=== PATIENT | male | born 1990 | race Caucasian/White ===

== ENCOUNTER 2017-10-06 23:44 | Emergency (ER) | payer BC ==
[2017-10-07 01:26] LABS: Absolute Lymphocytes (CBC) 3.6 K/uL (0.7-4.9); Absolute Monocytes 0.8 K/uL (0.1-1.3); Absolute Neutrophil 3.6 K/uL (1.8-8.0); Basophils % 0.4 % (0-1.3); Hematocrit 41.5 % (39.6-49.0); Lymphocytes % 44.7 % (15.3-44.8); MCH 31.1 pg (27.0-35.0); MCV 87.8 fL (80-100); MPV 8.5 fL (7.6-11.3); Monocytes % 9.8 % (3.3-12.3); RBC Red Blood Cell Count 4.72 M/uL (4.33-5.43)
[2017-10-07 01:36] LABS: ALT/SGPT 25 U/L (12-78); AST/SGOT 16 U/L (15-37); Albumin 4.1 g/dL (3.4-5.0); Alkaline Phosphatase 62 U/L (45-117); BUN Blood Urea Nitrogen 14 mg/dL (7-18); Bicarbonate 29 mmol/L (21-32); Bilirubin Direct 0.2 mg/dL (0-0.2); Glucose Level 90 mg/dL (74-106); Lipase 102 U/L (73-393); Potassium 3.8 mmol/L (3.5-5.1); Protein, Total 6.8 g/dL (6.4-8.2); Sodium Level 142 mmol/L (136-145)
--- NOTE | 2017-10-07 04:19 | EDPHYS ---
Physician Documentation [facility] Name: Nadeem Nolasco Age: 27 yrs Sex: Male : 1990 Arrival Date: 10/06/2017 Time: 23:45 Bed 7 Private MD: Tex Parikh ED Physician Ben Gonzalez HPI: 10/07 01:37 This 27 yrs old Male presents to ER via Wheelchair with complaints of pm1 Epigastric Pain, Dizziness. 01:37 The patient presents with abdominal pain in the epigastric area. Onset: The pm1 symptoms/episode began/occurred 1 month(s) ago. The symptoms do not radiate. Associated signs and symptoms: Pertinent positives: chest pain, Pertinent negatives: nausea, vomiting, and diarrhea, fever, shortness of breath. The symptoms are described as achy, burning. Modifying factors: The symptoms are alleviated by nothing, the symptoms are aggravated by food. Severity of pain: in the emergency department the pain is actually worse is a 5 / 10. The patient has experienced similar episodes in the past, multiple times, and the symptoms today are exactly the same, Patient seen by Dr. Yeboah/Neela. Had endoscopy/colonscopy and dx with gastritis. Patient placed on PPI. Patient complaining of continued chest pain and epigastric pain despite treatment. Patient also complaining of dizziness. Was seen by his PCP and referred to neurology for further evalution. Patient has had 4 ER visits for chest pain in the past one month. Discharged to home with ER visit. Historical: - Allergies: 00:06 No Known Allergies; tl2 - Home Meds: 00:06 Dexilant oral oral [Active]; tl2 - PMHx: 00:06 None; tl2 - PSHx: 00:06 None; tl2 - Immunization history:: Adult Immunizations up to date. - Social history:: Smoking status: Patient/guardian denies using tobacco. - Ebola Screening: : No symptoms or risks identified at this time. ROS: 01:37 Constitutional: Negative for fever, chills, and weight loss, Eyes: Negative for injury, pm1 pain, redness, and discharge, ENT: Negative for injury, pain, and discharge, Neck: Negative for injury, pain, and swelling. 01:37 Respiratory: Negative for shortness of breath, cough, wheezing, and pleuritic chest pain. 01:37 Back: Negative for injury and pain, : Negative for injury, bleeding, discharge, and swelling, MS/Extremity: Negative for injury and deformity, Skin: Negative for injury, rash, and discoloration, Neuro: Negative for headache, weakness, numbness, tingling, and seizure. 01:37 Cardiovascular: Positive for chest pain, Negative for edema, orthopnea, palpitations. 01:37 Abdomen/GI: Positive for abdominal pain, of the epigastric area, Negative for nausea, vomiting, and diarrhea. Exam: 01:37 Constitutional: This is a well developed, well nourished patient who is awake, alert, pm1 and in no acute distress. Head/Face: Normocephalic, atraumatic. Eyes: Pupils equal round and reactive to light, extra-ocular motions intact. Lids and lashes normal. Conjunctiva and sclera are non-icteric and not injected. Cornea within normal limits. Periorbital areas with no swelling, redness, or edema. ENT: Nares patent. No nasal discharge, no septal abnormalities noted. Tympanic membranes are normal and external auditory canals are clear. Oropharynx with no redness, swelling, or masses, exudates, or evidence of obstruction, uvula midline. Mucous membranes moist. Neck: Trachea midline, no thyromegaly or masses palpated, and no cervical lymphadenopathy. Supple, full range of motion without nuchal rigidity, or vertebral point tenderness. No Meningismus. Chest/axilla: Normal chest wall appearance and motion. Nontender with no deformity. No lesions are appreciated. Cardiovascular: Regular rate and rhythm with a normal S1 and S2. No gallops, murmurs, or rubs. Normal PMI, no JVD. No pulse deficits. Respiratory: Lungs have equal breath sounds bilaterally, clear to auscultation and percussion. No rales, rhonchi or wheezes noted. No increased work of breathing, no retractions or nasal flaring. 01:37 Back: No spinal tenderness. No costovertebral tenderness. Full range of motion. Skin: Warm, dry with normal turgor. Normal color with no rashes, no lesions, and no evidence of cellulitis. MS/ Extremity: Pulses equal, no cyanosis. Neurovascular intact. Full, normal range of motion. 01:37 Abdomen/GI: Inspection: abdomen appears normal, Bowel sounds: normal, Palpation: soft, mild abdominal tenderness, in the epigastric area, mass, is not appreciated, rebound tenderness, is not appreciated. 01:37 Neuro: Orientation: is normal, Mentation: is normal, Cranial nerves: CN II- XII are normal as tested, Cerebellar function: normal finger to nose testing, Motor: moves all fours, strength is normal, strength is 5/5 in all extremities, Sensation: is normal, no obvious gross deficits. Vital Signs: 00:06 BP 121 / 72; Pulse 71; Resp 18; Temp 99(O); Pulse Ox 99% on R/A; Weight 89.81 kg; tl2 Height 6 ft. 0 in. (182.88 cm); Pain 6/10; 01:02 BP 129 / 81; Pulse 60; Resp 15; Pulse Ox 99% on R/A; ak1 02:28 BP 120 / 77; Pulse 59; Resp 18; Pulse Ox 100% on R/A; Pain 4/10; ak1 03:15 BP 119 / 85; Pulse 56; Resp 18; Pulse Ox 97% ; ea 04:19 BP 116 / 82; Pulse 57; Resp 18; Temp 98.6; Pulse Ox 100% on R/A; Pain 4/10; ak1 00:06 Body Mass Index 26.85 (89.81 kg, 182.88 cm) tl2 MDM: 10/06 23:53 Patient medically screened. pm1 10/07 01:43 Data reviewed: vital signs. Data interpreted: Pulse oximetry: on room air is 99 %. pm1 Interpretation: normal. 10/07 00:05 Order name: Urine Dipstick--Ancillary (enter results) oe 10/07 00:36 Order name: Basic Metabolic Panel; Complete Time: 01:49 pm10/07 00:36 Order name: CBC with Diff; Complete Time: 01:30 pm10/07 00:36 Order name: Creatinine for Radiology; Complete Time: :49 pm10/07 00:36 Order name: Hepatic Function; Complete Time: :49 pm10/07 00:36 Order name: Lipase; Complete Time: 01:49 pm10/07 00:36 Order name: IV Saline Lock; Complete Time: 01:06 pm10/07 00:36 Order name: Labs collected and sent; Complete Time: 01:06 pm1 10/07 00:36 Order name: Troponin (emerg Dept Use Only); Complete Time: 01:49 pm1 10/07 00:36 Order name: EKG; Complete Time: 00:36 pm1 10/07 02:30 Order name: Head Brain Wo Cont EDMS 10/07 02:32 Order name: Abdomen EDMS 10/07 00:36 Order name: Urine Dipstick-Ancillary (obtain specimen); Complete Time: 01:06 pm1 10/07 00:36 Order name: EKG - Nurse/Tech; Complete Time: 01:06 pm1 Administered Medications: No medications were administered Disposition: 04:17 Co-signature as Attending Physician, Ben Gonzalez MD. pkl Disposition: 10/07/17 04:18 Discharged to Home. Impression: Dizziness. Chest pain. Abdominal pain. - Condition is Stable. - Prescriptions for Antivert 25 mg Oral Tablet - take 1 tablet by ORAL route every 8 hours As needed; 20 tablet. - Medication Reconciliation Form, Thank You Letter, Antibiotic Education, Prescription Opioid Use form. - Follow up: Private Physician; When: 2 - 3 days; Reason: Re-evaluation by your physician. - Problem is new. - Symptoms have improved. Signatures: Dispatcher [employer] EDLA Ben Gonzalez MD MD pkl Debbie Garcia RN RN ak1 Bryan Mahoney, MARGUERITE BOOK AGENT pm1 Jenny Oshea RN RN tl2 Corrections: (The following items were deleted from the chart) 02:25 00:36 Abdomen Pelvis W Con+CT.RAD.BRZ ordered. EDLA EDLA 02:25 01:31 Head Brain Wo Cont+CT.RAD.BRZ ordered. EDLA EDLA 04:22 04:18 10/07/2017 04:18 Discharged to Home. Impression: Dizziness. Chest pain. Abdominal ak1 pain. Condition is Stable. Forms are Medication Reconciliation Form, Thank You Letter, Antibiotic Education, Prescription Opioid Use. Follow up: Private Physician; When: 2 - 3 days; Reason: Re-evaluation by your physician. Problem is new. Symptoms have improved. pkl
--- NOTE | 2017-10-07 04:19 | ER ---
Nurse's Notes [facility] Name: Nadeem Nolasco Age: 27 yrs Sex: Male : 1990 Arrival Date: 10/06/2017 Time: 23:45 Bed 7 Private MD: Tex Parikh Diagnosis: Dizziness. Chest pain. Abdominal pain Presentation: 10/07 00:03 Presenting complaint: Patient states: I've been having pains here (epigastric) for tl2 about a month and I've had multiple EKG and blood tests but they're all negative, but I got diagnosed with gastritis and esophagitis and put on dexilant. My pain seems to get worse after I eat, I don't really have an appetite and have lost 20 pounds in a month. Denies vomiting. Transition of care: patient was not received from another setting of care. Onset of symptoms was September 16, 2017. Risk Assessment: Do you want to hurt yourself or someone else? Patient reports no desire to harm self or others. Initial Sepsis Screen: Does the patient meet any 2 criteria? No. Patient's initial sepsis screen is negative. Does the patient have a suspected source of infection? No. Patient's initial sepsis screen is negative. Care prior to arrival: None. 00:03 Method Of Arrival: Wheelchair tl2 00:03 Acuity: LOU 3 tl2 Triage Assessment: 00:06 General: Appears in no apparent distress. comfortable, Behavior is calm, cooperative, tl2 appropriate for age. Pain: Complains of pain in epigastric area Pain radiates to right upper quadrant Pain currently is 6 out of 10 on a pain scale. Historical: - Allergies: 00:06 No Known Allergies; tl2 - Home Meds: 00:06 Dexilant oral oral [Active]; tl2 - PMHx: 00:06 None; tl2 - PSHx: 00:06 None; tl2 - Immunization history:: Adult Immunizations up to date. - Social history:: Smoking status: Patient/guardian denies using tobacco. - Ebola Screening: : No symptoms or risks identified at this time. Screenin:08 Abuse screen: Denies threats or abuse. Nutritional screening: No deficits noted. tl2 Tuberculosis screening: No symptoms or risk factors identified. Fall Risk None identified. Assessment: 01:01 Reassessment: Patient appears in no apparent distress at this time. Patient and/or ak1 family updated on plan of care and expected duration. Pain level reassessed. Patient is alert, oriented x 3, equal unlabored respirations, skin warm/dry/pink. Pain: Pain began months ago. 01:02 General: Appears in no apparent distress. Behavior is calm, cooperative. Pain: ak1 Complains of pain in right upper quadrant and abdomen and epigastric area. Pain: Pain does not radiate. Neuro: No deficits noted. 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 Respiratory: No deficits noted. GI: Patient currently denies vomiting. : No signs and/or symptoms were reported regarding the genitourinary system. EENT: No signs and/or symptoms were reported regarding the EENT system. Derm: No signs and/or symptoms reported regarding the dermatologic system. Musculoskeletal: No signs and/or symptoms reported regarding the musculoskeletal system. 02:27 Reassessment: Patient appears in no apparent distress at this time. No changes from ak1 previously documented assessment. 03:31 Reassessment: No changes from previously documented assessment. Patient and/or family ea updated on plan of care and expected duration. Pain level reassessed. Awaiting on CT results. Vital Signs: 00:06 BP 121 / 72; Pulse 71; Resp 18; Temp 99(O); Pulse Ox 99% on R/A; Weight 89.81 kg; tl2 Height 6 ft. 0 in. (182.88 cm); Pain 6/10; 01:02 BP 129 / 81; Pulse 60; Resp 15; Pulse Ox 99% on R/A; ak1 02:28 BP 120 / 77; Pulse 59; Resp 18; Pulse Ox 100% on R/A; Pain 4/10; ak1 03:15 BP 119 / 85; Pulse 56; Resp 18; Pulse Ox 97% ; ea 04:19 BP 116 / 82; Pulse 57; Resp 18; Temp 98.6; Pulse Ox 100% on R/A; Pain 4/10; ak1 00:06 Body Mass Index 26.85 (89.81 kg, 182.88 cm) tl2 ED Course: 10/06 23:45 Patient arrived in ED. es 23:45 Tex Parikh MD is Private Physician. es 23:53 Bryan Mahoney NP is PHCP. pm1 23:53 Ben Gonzalez MD is Attending Physician. pm1 10/07 00:03 Urine collected: clean catch specimen, cloudy, Amount Voided: 30mL. oe 00:06 Triage completed. tl2 00:06 Arm band placed on right wrist. tl2 01:00 No provider procedures requiring assistance completed. Patient maintains SpO2 ak1 saturation greater than 95% on room air. 01:01 Patient has correct armband on for positive identification. Bed in low position. Call ak1 light in reach. Side rails up X 1. secured entrance monitor on. Pulse ox on. NIBP on. 01:05 Debbie Garcia, RN is Primary Nurse. ak1 01:13 Inserted saline lock: 20 gauge in right antecubital area, using aseptic technique. oe Blood collected. 03:16 Head Brain Wo Cont In Process Unspecified. EDMS 03:16 Abdomen In Process Unspecified. EDMS 04:19 IV discontinued, intact, bleeding controlled, No redness/swelling at site. Pressure ak1 dressing applied. Administered Medications: No medications were administered Outcome: 04:18 Discharge ordered by . pksocorro 04:19 Condition: stable ak1 04:22 Discharged to home ambulatory, with family. ak1 04:22 Discharge instructions given to patient, family, Instructed on discharge instructions, follow up and referral plans. medication usage, Demonstrated understanding of instructions, follow-up care, medications, Prescriptions given X 1. 04:22 Patient left the ED. ak1 Signatures: Dispatcher [employer] EDDE Ben Gonzalez MD MD pkl Salyer, Edna es Krenek, Amber, RN RN ak1 Bryan Mahoney, VINEYARD SUPERVISOR VINEYARD SUPERVISOR pm1 Jenny Oshea RN RN tl2 Esteban Mccollum Elena, RN RN ea
[2017-10-07 04:54] LABS: Urine Blood NEGATIVE (NEG); Urine Glucose NEGATIVE (NEG); Urine Protein NEGATIVE (NEG)
--- NOTE | 2017-10-07 08:53 | RAD REPORT ---
EXAM DESCRIPTION: CT - Abdomen Pelvis W Contrast - 10/07/2017 8:42 am CLINICAL HISTORY: Abdominal pain A preliminary written report was provided at the time of the study, and the report was reviewed prio r to final dictation. COMPARISON: None. TECHNIQUE: Biphasic, helical CT imaging of the abdomen and pelvis was performed following 100 ml non -ionic IV contrast. Oral contrast was given. All CT scans are performed using dose optimization technique as appropriate and may include automated exposure control or mA/KV adjustment according to patient size. FINDINGS: No suspicious findings in the lung bases. The liver, spleen, and pancreas show no suspicious findings. Gallbladder and biliary tree are also wi thout suspicious finding. Symmetric renal function is seen with no hydronephrosis or suspicious renal mass. No dilated bowel loops or bowel wall thickening. Appendix is normal. No free air, free fluid or infla mmatory stranding. No mass or bulky lymphadenopathy. A few small subcentimeter mesenteric lymph node s seen in the right lower quadrant. Patient has a very small incidental umbilical hernia. The urinary bladder is without significant finding. No adrenal abnormality. No prostate gland or seminal vesicle abnormality. No suspicious bony findings. IMPRESSION: Contrast enhanced CT abdomen and pelvis showing no significant or suspicious finding.
--- NOTE | 2017-10-07 08:54 | RAD REPORT ---
EXAM DESCRIPTION: CT - Head Brain Wo Cont - 10/07/2017 8:48 am CLINICAL HISTORY: Headache, dizziness A preliminary written report was provided at the time of the study, and the report was reviewed prio r to final dictation. COMPARISON: None. TECHNIQUE: Axial 5 mm thick images of the head were obtained without IV contrast. All CT scans are performed using dose optimization technique as appropriate and may include automated exposure control or mA/KV adjustment according to patient size. FINDINGS: No intracranial hemorrhage, mass, edema or shift of mid-line structures. No acute infarcti on changes seen. Increased CSF density is seen along the inner table right-side posterior cranial fos sa. This is unrelated to the transverse sinus. This is believed to be a normal developmental variant or possibly encephalomalacia from remote traumatic event. Acute clinical significance is not suspecte d. Ventricles are normal. Mastoid air cells and visualized portions of the paranasal sinuses are clear. No acute bony findings. IMPRESSION: Negative non-contrast CT head examination for acute or significant finding.
--- NOTE | 2017-10-08 07:43 | EKG ---
Test Date: 2017-10-07 Test Time: 00:46:16 Hatchery Helper: JOHN MEASUREMENT RESULTS: Intervals: Rate: 54 DE: 138 QRSD: 92 QT: 426 QTc: 403 [place]: P: 51 DE: 138 QRS: 55 T: 37 INTERPRETIVE STATEMENTS: Sinus bradycardia Otherwise normal ECG Compared to ECG 02/09/2009 20:01:13 Sinus rhythm no longer present Sinus arrhythmia no longer present Electronically Signed On 10-08-17 07:43:03 CDT by Khalif Mcbride
== END 2017-10-07 04:22 | disposition home or self-care (01) ==
LOC: ER 23:44
DX: R07.9 Chest pain, unspecified (principal); R10.13 Epigastric pain
CPT/HCPCS: 36415; 70450; 74177; 80048; 80076; 81003; 83690; 84484; 85025; 93005; 99285; Q9967

== ENCOUNTER 2018-07-19 23:36 | Emergency (ER) | payer BC, SELFPAY ==
--- OUTSIDE RECORDS SUMMARY | 2018-07-19 23:38 | XMS REPORT | Clinical Summary ---
:1990 Author Organization [facility] Address [address] [place] [address] Care Team Providers Name Role Phone Tex Parikh MD Primary Care Provider Allergies No Known Allergies Medications Medication Sig Dispensed Refills Start Date End Date Status dexlansoprazole Take 60 mg by 0 Active (DEXILANT) 60 mg capsule mouth daily. Active Problems Not on file Encounters Date Type Specialty Care Team Description 10/05/2017 Emergency Emergency Medicine [place], Chest pain, unspecified Birdie Parks MD type (Primary Dx) after 07/18/2017 Social History Tobacco Use Types Packs/Day Years Used Date Never Smoker Smokeless Tobacco: Current User Alcohol Use Drinks/Week oz/Week Comments No Sex Assigned at Date Recorded Not on file Job Start Date Occupation Industry Not on file Not on file Not on file Travel History Travel Start Travel End No recent travel history available. Last Filed Vital Signs Vital Sign Reading Time Taken Blood Pressure 136/79 10/05/2017 6:52 PM CDT Pulse 64 10/05/2017 6:52 PM CDT Temperature 37.7 C (99.8 F) 10/05/2017 2:57 PM CDT Respiratory Rate 16 10/05/2017 6:52 PM CDT Oxygen Saturation 97% 10/05/2017 6:52 PM CDT Inhaled Oxygen Concentration - - Weight 89.8 kg (198 lb) 10/05/2017 2:55 PM CDT Height 182.9 cm (6') 10/05/2017 2:55 PM CDT Body Mass Index 26.85 10/05/2017 2:55 PM CDT Plan of Treatment Health Maintenance Due Date Last Done Comments INFLUENZA VACCINE 10/17/2018 Procedures Procedure Name Priority Date/Time Associated Comments Diagnosis D-DIMER STAT 10/05/2017 4:40 Results for this PM CDT procedure are in the results section. ZZESTIMATED GFR STAT 10/05/2017 4:40 Results for this PM CDT procedure are in the results section. B NATRIURETIC PEPTIDE STAT 10/05/2017 4:40 Results for this PM CDT procedure are in the results section. TROPONIN STAT 10/05/2017 4:40 Results for this PM CDT procedure are in the results section. COMPREHENSIVE METABOLIC STAT 10/05/2017 4:40 Results for this PANEL PM CDT procedure are in the results section. HC COMPLETE BLD COUNT STAT 10/05/2017 4:40 Results for this W/AUTO DIFF PM CDT procedure are in the results section. XR CHEST 2 VW STAT 10/05/2017 4:39 Results for this PM CDT procedure are in the results section. ECG 12-LEAD STAT 10/05/2017 4:11 Results for this PM CDT procedure are in the results section. ECG ED PRELIMINARY Routine 10/05/2017 3:58 Results for this INTERPRETATION PM CDT procedure are in the results section. after 07/18/2017 Results Estimated GFR (10/05/2017 4:40 PM CDT) GFR Non Af Amer >90 mL/min/1.73 m2 [facility] AND GENOMIC MEDICINE GFR Af Amer >90 mL/min/1.73 m2 [facility] OF Comment: PATHOLOGY AND GENOMIC Chronic kidney disease: <60 mL/min/1.73m2 MEDICINE Kidney failure: <15 mL/min/1.73m2 The estimated GFR is calculated from the IDMS-traceable Modification of Diet in Renal Disease Equation. The accuracy of the calculation is poor when the creatinine is normal. Calculated values >90 mL/min/1.73m2 are not reported. This equation has not been validated in children (<18 years), women, the elderly (>70 years), or ethnic groups other than Caucasians and Americans. Specimen Plasma specimen Performing Organization Address City/State/Zipcode Phone Number [facility]Y AND [address] [place] [address] [employer] MEDICINE Troponin (10/05/2017 4:40 PM CDT) Troponin <0.30 0.00 - 0.30 ng/mL [facility] PATHOLOGY Comment: AND GENOMIC MEDICINE 0.11 - 1.49 ng/mlMay indicate increased risk of acute coronary syndrome. >=1.5 ng/mlConsistent with acute myocardial infarction. The diagnostic value of a single normal or non-diagnostic result is questionable.Serial samples at 2-6 hour intervals are required to rule out acute myocardial injury. Specimen Plasma specimen Performing Organization Address City/State/Zipcode Phone Number [facility]OLOGY AND [address] [place] [address] [facility] D-dimer (10/05/2017 4:40 PM CDT) D-dimer <0.27 0.00 - 0.40 ug/mL FEU [facility] OF Comment: PATHOLOGY AND GENOMIC Units are ug/ml Fibrinogen Equivalent Unit. MEDICINE When combined with low clinical probability, D-dimer results of less than 0.5 ug/ml FEU have a good negativepredictive value in excluding PE or DVT. For D-dimer results greater than 0.5ug/ml FEU further testing is indicated if PE or DVT is suspectedclinically. Elevated D-dimer results have been reported in DVT, PE, and DIC cases and may indicate the presence of a clot. D-dimer results may be elevated due to old age, , inflammatory diseases, trauma, post-operative states, sepsis, and malignancies. Specimen Blood Performing Organization Address City/State/Zipcode Phone Number [facility]OLOGY AND [facility] [place] [address] [facility] CBC with platelet and differential (10/05/2017 4:40 PM CDT) WBC 10.1 4.2 - 11.0 k/uL [facility]OLOGY AND GENOMIC MEDICINE RBC 4.81 4.04 - 5.86 m/uL [facility] OF [facility]OLOGY AND GENOMIC MEDICINE HGB 14.5 13.0 - 17.3 g/dL [facility]OLOGY AND GENOMIC MEDICINE HCT 42.3 34.0 - 45.0 % [facility] OF [facility]OLOGY AND GENOMIC MEDICINE MCV 87.9 80.0 - 98.0 fL [facility]OLOGY AND GENOMIC MEDICINE MCH 30.1 27.0 - 34.0 pg [facility] OF PATHOLOGY AND GENOMIC MEDICINE MCHC 34.3 31.5 - 36.5 g/dL [facility] OF [facility]OLOGY AND GENOMIC MEDICINE RDW - SD 37.3 37.0 - 51.0 fL [facility] OF [facility]OLOGY AND GENOMIC MEDICINE MPV 9.8 7.4 - 10.4 fL [facility] OF [facility]OLOGY AND GENOMIC MEDICINE Platelet count 296 150 - 400 k/uL [facility] OF PATHOLOGY AND GENOMIC MEDICINE Nucleated RBC 0.00 /100 WBC [facility] OF PATHOLOGY AND GENOMIC MEDICINE Neutrophils 68.9 (H) 36.0 - 66.0 % [facility] OF [facility]OLOGY AND GENOMIC MEDICINE Lymphocytes 23.2 (L) 24.0 - 44.0 % [facility]OLOGY AND GENOMIC MEDICINE Monocytes 7.5 (H) 0.0 - 6.0 % [facility] OF [facility]OLOGY AND GENOMIC MEDICINE Eosinophils 0.1 0.0 - 6.0 % [facility] OF PATHOLOGY AND GENOMIC MEDICINE Basophils 0.1 0.0 - 1.2 % [facility] OF [facility]OLOGY AND GENOMIC MEDICINE Immature granulocytes 0.2 0.0 - 1.0 % [facility] OF [facility]OLOGY AND GENOMIC MEDICINE Specimen Blood Performing Organization Address City/[facility]/Zipcode Phone Number [facility]OLOGY AND [address] [place] [address] B natriuretic peptide (10/05/2017 4:40 PM CDT) BNP 5 0 - 100 pg/mL [facility] OF [facility]OLOGY AND GENOMIC MEDICINE Specimen Blood Performing Organization Address City/[facility]/Zipcode Phone Number [facility] PATHOLOGY AND [address] [place] [address] Comprehensive metabolic panel (10/05/2017 4:40 PM CDT) Sodium 139 135 - 150 mEq/L [facility] OF [facility]OLOGY AND GENOMIC MEDICINE Potassium 4.2 3.5 - 5.0 mEq/L [facility] OF [facility]OLOGY AND GENOMIC MEDICINE Chloride 99 98 - 112 mEq/L [facility] AND GENOMIC MEDICINE CO2 28 24 - 31 mmol/L [facility]OLOGY AND GENOMIC MEDICINE Anion gap 12@ANIO 7 - 15 mEq/L [facility] OF [facility]OLOGY AND GENOMIC MEDICINE BUN 13 7 - 18 mg/dL [facility] OF [facility]OLOGY AND GENOMIC MEDICINE Creatinine 0.90 0.70 - 1.20 mg/dL [facility]OLOGY AND GENOMIC MEDICINE Glucose 102 (H) 65 - 100 mg/dL [facility] OF [facility]OLOGY AND GENOMIC MEDICINE Calcium 9.7 8.3 - 10.2 mg/dL [facility] OF [facility]OLOGY AND GENOMIC MEDICINE Protein 7.1 6.3 - 8.3 g/dL [facility]OLOGY AND GENOMIC MEDICINE Albumin 4.6 3.5 - 5.0 g/dL [facility] OF [facility]OLOGY AND GENOMIC MEDICINE A/G ratio 1.8 0.7 - 3.8 [facility] OF [facility]OLOGY AND GENOMIC MEDICINE Alkaline phosphatase 52 0 - 129 U/L [facility] OF [facility]OLOGY AND GENOMIC MEDICINE AST 25 10 - 50 U/L [facility]OLOGY AND GENOMIC MEDICINE ALT 22 5 - 50 U/L [facility] OF [facility]OLOGY AND GENOMIC MEDICINE Total bilirubin 1.6 (H) 0.2 - 1.2 mg/dL [facility]Y AND GENOMIC MEDICINE Specimen Plasma specimen Performing Organization Address City/[facility]/Zipcode Phone Number [facility]OLOGY AND [facility] [place] [address] GENOMIC MEDICINE XR Chest 2 Vw (10/05/2017 4:39 PM CDT) Narrative Performed At EXAMINATION:XR CHEST 2 VW [facility] CLINICAL HISTORY:Chest wall pain COMPARISON:None. FINDINGS: Two views of the chest demonstrate normal cardiomediastinal silhouette. Pulmonary vasculature is within normal limits. Both lungs are clear. No pleural disease is identified. Regional osseous structures is unremarkable. IMPRESSION: No radiographic evidence of acute cardiopulmonary process or active disease of the chest. [id number] Procedure Note Hm Interface, Radiology Results Incoming - 10/05/2017 4:45 PM CDT EXAMINATION: XR CHEST 2 VW CLINICAL HISTORY: Chest wall pain COMPARISON: None. FINDINGS: Two views of the chest demonstrate normal cardiomediastinal silhouette. Pulmonary vasculature is within normal limits. Both lungs are clear. No pleural disease is identified. Regional osseous structures is unremarkable. IMPRESSION: No radiographic evidence of acute cardiopulmonary process or active disease of the chest. [facility][id number] Performing Organization Address City/State/Zipcode Phone Number [facility] [address] [place] [address] ECG 12 lead (10/05/2017 4:11 PM CDT) Ventricular rate 78 [facility] Atrial rate 78 [facility] NE interval 138 [facility] QRSD interval 100 [facility] QT interval 376 [facility] QTC interval 428 [facility] P axis 1 56 [facility] QRS axis 1 84 [facility] T wave axis 55 [facility] EKG impression Normal sinus rhythm-Normal ECG-No previous [facility] ECGs available- Performing Organization Address City/State/Zipcode Phone Number [facility] [address] [place] [address] ECG ED Preliminary Interpretation - NOT AN ORDER (10/05/2017 3:58 PM CDT) Narrative Performed At Birdie Rodriguez MD 10/06/2017 10:44 PM ECG ED Preliminary Interpretation - Not an Order Performed by: BIRDIE RODRIGUEZ Authorized by: BIRDIE RODRIGUEZ ECG reviewed by ED Physician in the absence of a food taster: yes Interpretation: Interpretation: normal Rate: ECG rate:78 ECG rate assessment: normal Rhythm: Rhythm: sinus rhythm Ectopy: Ectopy: none QRS: QRS axis:Normal QRS intervals:Normal Conduction: Conduction: normal ST segments: ST segments:Normal T waves: T waves: normal after 07/18/2017 Insurance Payer Benefit Plan / Group Subscriber ID Type Phone Address BCBS BCBS CHOICE PPO/[employer] PPO xxxxxxxxxxxx PPO (Home) [address] [place] [phone] Advance Directives Patient has advance care planning documents on file. For more information, please contact:Carlos Lamb[address] [place] [address]
--- NOTE | 2018-07-20 01:16 | EDPHYS ---
Physician Documentation [facility] Name: Nadeem Nolasco Age: 27 yrs Sex: Male : 1990 Arrival Date: 07/19/2018 Time: 23:39 Bed 7 Private MD: ED Physician Raheem López HPI: 07/20 00:57 This 27 yrs old Male presents to ER via Ambulatory with complaints of Hand snw Injury. 00:57 The patient or guardian reports a contusion, decreased range of motion, injury, pain, snw swelling. The complaints affect the medial aspect of right hand. Context: The problem was sustained inside, resulted from using own fist to strike, a solid object. Onset: The symptoms/episode began/occurred suddenly, just prior to arrival. Associated signs and symptoms: The patient has no apparent associated signs or symptoms. Severity of symptoms: At their worst the symptoms were moderate. The patient has not experienced similar symptoms in the past. The patient has not recently seen a physician. Historical: - Allergies: 07/19 23:57 No Known Allergies; ed1 - Home Meds: 23:57 None [Active]; ed1 - PMHx: 23:57 None; ed1 - PSHx: 23:57 None; ed1 - Immunization history:: Adult Immunizations up to date. - Social history:: Smoking status: Patient/guardian denies using tobacco. - Ebola Screening: : Patient negative for fever greater than or equal to 101.5 degrees Fahrenheit, and additional compatible Ebola Virus Disease symptoms Patient denies exposure to infectious person Patient denies travel to an Ebola-affected area in the 21 days before illness onset No symptoms or risks identified at this time. ROS: 07/20 00:54 Constitutional: Negative for fever, chills, and weight loss, Eyes: Negative for injury, snw pain, redness, and discharge, ENT: Negative for injury, pain, and discharge, Neck: Negative for injury, pain, and swelling, Cardiovascular: Negative for chest pain, palpitations, and edema, Respiratory: Negative for shortness of breath, cough, wheezing, and pleuritic chest pain, Abdomen/GI: Negative for abdominal pain, nausea, vomiting, diarrhea, and constipation, Back: Negative for injury and pain, : Negative for injury, bleeding, discharge, and swelling, Skin: Negative for injury, rash, and discoloration, Neuro: Negative for headache, weakness, numbness, tingling, and seizure. MS/extremity: Positive for injury or acute deformity, contusion, deformity, pain, swelling, tenderness, of the medial aspect of right hand. Exam: 00:54 Constitutional: This is a well developed, well nourished patient who is awake, alert, snw and in no acute distress. Head/Face: Normocephalic, atraumatic. Eyes: Pupils equal round and reactive to light, extra-ocular motions intact. Lids and lashes normal. Conjunctiva and sclera are non-icteric and not injected. Cornea within normal limits. Periorbital areas with no swelling, redness, or edema. ENT: Nares patent. No nasal discharge, no septal abnormalities noted. Tympanic membranes are normal and external auditory canals are clear. Oropharynx with no redness, swelling, or masses, exudates, or evidence of obstruction, uvula midline. Mucous membranes moist. Neck: Trachea midline, no thyromegaly or masses palpated, and no cervical lymphadenopathy. Supple, full range of motion without nuchal rigidity, or vertebral point tenderness. No Meningismus. Chest/axilla: Normal chest wall appearance and motion. Nontender with no deformity. No lesions are appreciated. Cardiovascular: Regular rate and rhythm with a normal S1 and S2. No gallops, murmurs, or rubs. Normal PMI, no JVD. No pulse deficits. Respiratory: Lungs have equal breath sounds bilaterally, clear to auscultation and percussion. No rales, rhonchi or wheezes noted. No increased work of breathing, no retractions or nasal flaring. Abdomen/GI: Soft, non-tender, with normal bowel sounds. No distension or tympany. No guarding or rebound. No evidence of tenderness throughout. Back: No spinal tenderness. No costovertebral tenderness. Full range of motion. Skin: Warm, dry with normal turgor. Normal color with no rashes, no lesions, and no evidence of cellulitis. Neuro: Awake and alert, GCS 15, oriented to person, place, time, and situation. Cranial nerves II-XII grossly intact. Motor strength 5/5 in all extremities. Sensory grossly intact. Cerebellar exam normal. Normal gait. Psych: Awake, alert, with orientation to person, place and time. Behavior, mood, and affect are within normal limits. 00:54 Musculoskeletal/extremity: Extremities: grossly normal except: noted in the medial aspect of right hand: decreased ROM, pain, swelling, tenderness, ROM: limited active range of motion due to pain, Circulation is intact in all extremities. Pulses: are normal with no appreciated deficits, Sensation intact. Vital Signs: 07/19 23:57 BP 129 / 81; Pulse 90; Resp 18; Temp 98.0(TE); Pulse Ox 99% on R/A; Weight 89.36 kg; ed1 Height 6 ft. 0 in. (182.88 cm); Pain 6/10; 07/20 01:31 BP 131 / 78; Pulse 86; Resp 17; Temp 98.2; Pulse Ox 100% on R/A; Pain 4/10; tl1 07/19 23:57 Body Mass Index 26.72 (89.36 kg, 182.88 cm) ed1 Procedures: 00:55 Reduction: of the medial aspect of right hand, using manipulation, Immobilized with snw ulnar gutter. Patient tolerated well. declined pain medication pre and post reduction. MDM: 00:02 Patient medically screened. [facility] 01:16 Data reviewed: vital signs, nurses notes. Data interpreted: Pulse oximetry: on room air snw is 99 %. Interpretation: normal. Counseling: I had a detailed discussion with the patient and/or guardian regarding: the historical points, exam findings, and any diagnostic results supporting the discharge/admit diagnosis, radiology results, the need for outpatient follow up, to return to the emergency department if symptoms worsen or persist or if there are any questions or concerns that arise at home. Response to treatment: the patient's symptoms have markedly improved after treatment. Special discussion: Based on the history and exam findings, there is no indication for further emergent testing or inpatient evaluation. I discussed with the patient/guardian the need to see the orthopedic surgeon for further evaluation of the symptoms. 07/20 00:02 Order name: Hand Right 3 View XRAY snw 07/20 00:42 Order name: Ulnar Gutter splint; Complete Time: 01:15 snw 07/20 01:12 Order name: Hand Right 2 View EDMS Administered Medications: No medications were administered Disposition: 07/20/18 01:15 Discharged to Home. Impression: Dislocation of metacarpal (bone), proximal end of right hand. - Condition is Stable. - Discharge Instructions: Cast or Splint Care, Adult, RICE for Routine Care of Injuries, Closed Reduction for Metacarpal Dislocation. - Prescriptions for Motrin IB 200 mg Oral Tablet - take 2 tablet by ORAL route every 6 hours As needed as needed with food; 40 tablet. - Medication Reconciliation Form, Thank You Letter, Antibiotic Education, Prescription Opioid Use form. - Follow up: Robb Robles MD; When: 2 - 3 days; Reason: Recheck today's complaints, Continuance of care, Re-evaluation by your physician. Addendum: 07/22/2018 06:43 Co-signature as Attending Physician, Raheem López MD I agree with the assessment and c salas plan of care. Signatures: Dispatcher [employer] EDMS Raheem López MD MD cha Therrien, Shelly, SLOT SHIFT SUPERVISOR-C SLOT SHIFT SUPERVISOR-Csnw Sandee Carrasco, RN RN ed1 Cristine Wright RN RN tl1 Corrections: (The following items were deleted from the chart) 07/20 01:33 01:15 07/20/2018 01:15 Discharged to Home. Impression: Dislocation of metacarpal tl1 (bone), proximal end of right hand. Condition is Stable. Forms are Medication Reconciliation Form, Thank You Letter, Antibiotic Education, Prescription Opioid Use. Follow up: Dr. Robb Robles; When: 2 - 3 days; Reason: Recheck today's complaints, Continuance of care, Re-evaluation by your physician. snw
--- NOTE | 2018-07-20 01:16 | ER ---
Nurse's Notes [facility] Name: Nadeem Nolasco Age: 27 yrs Sex: Male : 1990 Arrival Date: 07/19/2018 Time: 23:39 Bed 7 Private MD: Diagnosis: Dislocation of metacarpal (bone), proximal end of right hand Presentation: 07/19 23:56 Presenting complaint: Patient states: I punched a wall so I need to x-ray my hand. ed1 Transition of care: patient was not received from another setting of care. Onset of symptoms was July 19, 2018. Risk Assessment: Do you want to hurt yourself or someone else? Patient reports no desire to harm self or others. Initial Sepsis Screen: Does the patient meet any 2 criteria? No. Patient's initial sepsis screen is negative. Does the patient have a suspected source of infection? No. Patient's initial sepsis screen is negative. Care prior to arrival: None. 23:56 Method Of Arrival: Ambulatory ed1 23:56 Acuity: LOU 4 ed1 Triage Assessment: 23:57 General: Appears in no apparent distress. Behavior is calm, cooperative. Pain: ed1 Complains of pain in right hand Pain radiates to right arm Pain currently is 6 out of 10 on a pain scale. Quality of pain is described as aching. Musculoskeletal: Circulation, motion, and sensation intact. Range of motion: intact in all extremities. Historical: - Allergies: 23:57 No Known Allergies; ed1 - Home Meds: 23:57 None [Active]; ed1 - PMHx: 23:57 None; ed1 - PSHx: 23:57 None; ed1 - Immunization history:: Adult Immunizations up to date. - Social history:: Smoking status: Patient/guardian denies using tobacco. - Ebola Screening: : Patient negative for fever greater than or equal to 101.5 degrees Fahrenheit, and additional compatible Ebola Virus Disease symptoms Patient denies exposure to infectious person Patient denies travel to an Ebola-affected area in the 21 days before illness onset No symptoms or risks identified at this time. Screenin/04 00:23 Abuse screen: Denies threats or abuse. Denies injuries from another. Nutritional tl1 screening: No deficits noted. Tuberculosis screening: No symptoms or risk factors identified. Fall Risk None identified. Assessment: 00:24 General: Appears in no apparent distress. Behavior is calm, cooperative, appropriate tl1 for age. Pain: Complains of pain in right hand Quality of pain is described as aching. Neuro: No deficits noted. Level of Consciousness is awake, alert, obeys commands, Oriented to person, place, time, situation. Cardiovascular: Denies chest pain. Respiratory: Airway is patent Trachea midline Respiratory effort is even, unlabored, Breath sounds are clear bilaterally. GI: No signs and/or symptoms were reported involving the gastrointestinal system. : No signs and/or symptoms were reported regarding the genitourinary system. EENT: No signs and/or symptoms were reported regarding the EENT system. Musculoskeletal: Swelling present in right hand Tenderness present in right hand Reports pain in right hand. Injury Description:. 01:31 Reassessment: Patient and/or family updated on plan of care and expected duration. Pain tl1 level reassessed. Patient is alert, oriented x 3, equal unlabored respirations, skin warm/dry/pink. Patient states feeling better. Patient states symptoms have improved. Vital Signs: 07/19 23:57 BP 129 / 81; Pulse 90; Resp 18; Temp 98.0(TE); Pulse Ox 99% on R/A; Weight 89.36 kg; ed1 Height 6 ft. 0 in. (182.88 cm); Pain 6/10; 07/20 01:31 BP 131 / 78; Pulse 86; Resp 17; Temp 98.2; Pulse Ox 100% on R/A; Pain 4/10; tl1 07/19 23:57 Body Mass Index 26.72 (89.36 kg, 182.88 cm) ed1 ED Course: 07/19 23:39 Patient arrived in ED. es 23:56 Triage completed. ed1 23:57 Arm band placed on right wrist. ed1 23:57 Patient has correct armband on for positive identification. Bed in low position. Call tl1 light in reach. Side rails up X 1. 07/20 00:01 [facility]ene [facility]C [facility] snw 00:01 Raheem López MD is Attending Physician. snw 00:14 X-ray completed. Portable x-ray completed in exam room. Patient tolerated procedure az well. 00:15 Hand Right 3 View XRAY In Process Unspecified. EDMS 01:03 Cristine Wright, RN is Primary Nurse. tl1 01:14 Robb Robles MD is Referral Physician. snw 01:20 No provider procedures requiring assistance completed. Patient did not have IV access tl1 during this emergency room visit. Orthoglass splint: Ulnar gutter/Boxer splint applied on right forearm. 02:34 Hand Right 2 View In Process Unspecified. EDMS Administered Medications: No medications were administered Outcome: 01:15 Discharge ordered by . snw 01:32 Discharged to home ambulatory, with family. tl1 01:32 Condition: good 01:32 Discharge instructions given to patient, family, Instructed on discharge instructions, follow up and referral plans. medication usage, SPLINT CARE. ICE AND ELEVATION Demonstrated understanding of instructions, follow-up care, medications, splint care, Prescriptions given X 1. 01:33 Patient left the ED. tl1 Signatures: Dispatcher [employer] EDMS Marylou Keene, MAEGAN-C [employer]-CsnKera Solis Erika RN RN ed1 Cristine Wright, RN RN tl1 Liane Zhong Corrections: (The following items were deleted from the chart) 05/03 23:59 23:57 BP 129 / 81; Pulse 90bpm; Resp 18bpm; Pulse Ox 99% RA; Temp 98.0F Temporal; 89.36 ed1 kg; Height 6 ft. 0 in.; BMI: 26.7; Pain 8/10; ed1
--- NOTE | 2018-07-20 09:24 | RAD REPORT ---
EXAM DESCRIPTION: RAD - Hand Right 3 View - 07/20/2018 12:17 am CLINICAL HISTORY: Right hand pain status post injury FINDINGS: Dislocation involves the base of the fifth metacarpal. Small bony density adjacent to the base may indicate an avulsion fracture from either the navicular or the fifth metacarpal. An old fracture of the fifth metacarpal neck suspected.
--- NOTE | 2018-07-20 09:25 | RAD REPORT ---
EXAM DESCRIPTION: RAD - Hand Right 2 View - 07/20/2018 2:34 am CLINICAL HISTORY: Right hand pain status post injury FINDINGS: The previously described dislocation involving the fifth metacarpal appears reduced
== END 2018-07-20 01:33 | disposition home or self-care (01) ==
LOC: ER 23:36
PROC: 0RSUXZZ Reposition Right Metacarpophalangeal Joint, External Approach (ICD-10-PCS; principal; 2018-07-20)
DX: S63.064A Dislocation of metacarpal (bone), proximal end of right hand, initial encounter (principal); W22.8XXA Striking against or struck by other objects, initial encounter; Y93.9 Activity, unspecified; Y92.89 Other specified places as the place of occurrence of the external cause
CPT/HCPCS: 99283

== ENCOUNTER 2018-11-24 14:09 | Emergency (ER) | payer SELFPAY ==
--- OUTSIDE RECORDS SUMMARY | 2018-11-24 14:12 | XMS REPORT | Clinical Summary ---
:1990 Author Organization [facility] Address [address] [place] [address] Care Team Providers Name Role Phone Tex Parikh MD Primary Care Provider Allergies No Known Allergies Medications Medication Sig Dispensed Refills Start Date End Date Status dexlansoprazole Take 60 mg by 0 Active (DEXILANT) 60 mg capsule mouth daily. Active Problems Not on file Social History Tobacco Use Types Packs/Day Years Used Date Never Smoker Smokeless Tobacco: Current User Alcohol Use Drinks/Week oz/Week Comments No Sex Assigned at Date Recorded Not on file Job Start Date Occupation Industry Not on file Not on file Not on file Travel History Travel Start Travel End No recent travel history available. 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
--- OUTSIDE RECORDS SUMMARY | 2018-11-24 14:12 | XMS REPORT ---
:1990 Author [facility] Address [address] [place] [address] Dr. Rosado [address] [place] [id number] Care Team Providers Name Role Phone Unavailable Unavailable Unavailable Problems This patient has no known problems. Allergies, Adverse Reactions, Alerts This patient has no known allergies or adverse reactions. Medications This patient has no known medications. Encounters Start End Encounter Admission Attending Care Care Encounter Date/Time Date/Time Type Type Clinicians Facility Department ID 2018-10-13 2018-10-13 Emergency E [id number] 21:52:00 21:52:00
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
[2018-11-24 17:09] VITALS: TEMP 99
[2018-11-24 17:11] VITALS: BP 136/81; O2SAT 98
== END 2018-11-24 15:25 | disposition home or self-care (01) ==
LOC: ER 14:09
DX: S00.90XA Unspecified superficial injury of unspecified part of head, initial encounter (principal); Y04.2XXA Assault by strike against or bumped into by another person, initial encounter; Y93.89 Activity, other specified; Y92.89 Other specified places as the place of occurrence of the external cause; F17.220 Nicotine dependence, chewing tobacco, uncomplicated
CPT/HCPCS: 70450; 70486; 72125; 76377; 99283

== ENCOUNTER 2019-04-10 00:26 | Emergency (ER) | payer SELFPAY ==
[2019-04-10 01:20] LABS: Absolute Lymphocytes (CBC) 2.9 K/uL (0.7-4.9); Basophils % 0.2 % (0-1.3); Hematocrit 43.3 % (39.6-49.0); Lymphocytes % 30.2 % (15.3-44.8); MPV 8.2 fL (7.6-11.3); RBC Red Blood Cell Count 4.88 M/uL (4.33-5.43)
[2019-04-10 01:30] LABS: Potassium 3.8 mmol/L (3.5-5.1)
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
--- NOTE | 2019-04-10 01:40 | EDPHYS ---
Physician Documentation [facility] Name: Nadeem Nolasco Age: 28 yrs Sex: Male : 1990 Arrival Date: 04/10/2019 Time: 00:29 Bed 15 Private MD: ED Physician See Rm HPI: 04/10 00:44 This 28 yrs old Male presents to ER via Unassigned with complaints of la1 Abdominal Cramping, Dizziness. 00:44 Pt reports for the last three or four days he has had dizziness, myalgias, abd la1 cramping, dry mouth. Onset: The symptoms/episode began/occurred 4 day(s) ago. Severity of symptoms: At their worst the symptoms were mild. The patient has not experienced similar symptoms in the past. Historical: - Allergies: 00:54 No Known Allergies; fu - Immunization history:: Adult Immunizations not up to date. - Social history:: Smoking status: Patient reports the use of cigarette tobacco products. - Ebola Screening: : No symptoms or risks identified at this time. ROS: 00:45 Constitutional: Negative for fever, chills, and weight loss, Eyes: Negative for injury, la1 pain, redness, and discharge, ENT: Negative for injury, pain, and discharge, Neck: Negative for injury, pain, and swelling, Cardiovascular: Negative for chest pain, palpitations, and edema, Respiratory: Negative for shortness of breath, cough, wheezing, and pleuritic chest pain, Abdomen/GI: Negative for abdominal pain, nausea, vomiting, diarrhea, and constipation, Back: Negative for injury and pain, : Negative for injury, bleeding, discharge, and swelling, MS/Extremity: Negative for injury and deformity. 00:45 MS/extremity: Positive for myalgias. 00:45 Neuro: Positive for dizziness. Exam: 00:49 Constitutional: This is a well developed, well nourished patient who is awake, alert, la1 and in no acute distress. Head/Face: Normocephalic, atraumatic. Eyes: Periorbital areas with no swelling, redness, or edema. ENT: Mucous membranes moist. Neck: Trachea midline, no thyromegaly or masses palpated, and no cervical lymphadenopathy. Supple, full range of motion without nuchal rigidity, or vertebral point tenderness. No Meningismus. Chest/axilla: Normal chest wall appearance and motion. Nontender with no deformity. No lesions are appreciated. Cardiovascular: Regular rate and rhythm with a normal S1 and S2. No gallops, murmurs, or rubs. Normal PMI, no JVD. No pulse deficits. Respiratory: Lungs have equal breath sounds bilaterally, clear to auscultation. No rales, rhonchi or wheezes noted. No increased work of breathing, no retractions or nasal flaring. Abdomen/GI: Soft, non-tender, with normal bowel sounds. No guarding or rebound. No evidence of tenderness throughout. Back: No spinal tenderness. No costovertebral tenderness. Full range of motion. MS/ Extremity: Pulses equal, no cyanosis. Neurovascular intact. Full, normal range of motion. Neuro: Awake and alert, GCS 15, oriented to person, place, time, and situation. Normal gait. Vital Signs: 00:50 BP 145 / 80; Pulse 77; Resp 18; Temp 97.5(O); Pulse Ox 100% on R/A; Pain 0/10; fu 01:28 BP 126 / 71; Pulse 72; Resp 20; Pulse Ox 99% on R/A; fu MDM: 00:31 Patient medically screened. la1 01:38 Data reviewed: vital signs, nurses notes, lab test result(s), and as a result, I will la1 discharge patient. Data interpreted: Pulse oximetry: on room air is 99 %. Interpretation: normal. Test interpretation: by ED physician or midlevel provider: ECG. Counseling: I had a detailed discussion with the patient and/or guardian regarding: the historical points, exam findings, and any diagnostic results supporting the discharge/admit diagnosis, the presence of at least one elevated blood pressure reading (>120/80) during this emergency department visit, lab results, the need for outpatient follow up, a general surgeon, to return to the emergency department if symptoms worsen or persist or if there are any questions or concerns that arise at home. Special discussion: Based on the history and exam findings, there is no indication for further emergent testing or inpatient evaluation. I discussed with the patient/guardian the need to see the primary care provider for further evaluation of the symptoms. 04/10 00:43 Order name: CBC with Diff; Complete Time: :27 la1 04/10 00:43 Order name: BMP; Complete Time: :04/10 00:43 Order name: IV; Complete Time: 01:07 04/10 00:43 Order name: CK; Complete Time: :04/10 01:21 Order name: Urine Dipstick--Ancillary (enter results) mw2 04/10 00:43 Order name: EKG - Nurse/Tech; Complete Time: 01:07 04/10 00:43 Order name: Urine Dipstick-Ancillary (obtain specimen); Complete Time: 01:08 Administered Medications: No medications were administered Disposition: 08:08 Co-signature as Attending Physician, See Rm MD I agree with the assessment and tw4 plan of care. Disposition: 04/10/19 01:39 Discharged to Home. Impression: Dizziness and giddiness. - Condition is Stable. - Discharge Instructions: Dehydration, Adult, Dizziness, Rehydration, Adult. - Medication Reconciliation Form, Thank You Letter form. - Follow up: Private Physician; When: 2 - 3 days; Reason: Recheck today's complaints, Re-evaluation by your physician. Follow up: Emergency Department; When: As needed. - Problem is new. - Symptoms have improved. Signatures: Dispatcher [employer] EDMS Abimael Etienne, FULL FASHIONED GARMENT KNITTER-C FULL FASHIONED GARMENT KNITTER-Cla1 Mary Moffett RN Santosh Harrison ea RN See Smith MD MD tw4 Corrections: (The following items were deleted from the chart) 01:47 01:39 04/10/2019 01:39 Discharged to Home. Impression: Dizziness and giddiness. ea Condition is Stable. Forms are Medication Reconciliation Form, Thank You Letter, Antibiotic Education, Prescription Opioid Use. Follow up: Private Physician; When: 2 - 3 days; Reason: Recheck today's complaints, Re-evaluation by your physician. Follow up: Emergency Department; When: As needed. Problem is new. Symptoms have improved. la1
[2019-04-10 02:22] LABS: Urine Blood NEGATIVE (NEG); Urine Glucose NEGATIVE (NEG); Urine Protein NEGATIVE (NEG)
[2019-04-10 05:51] VITALS: TEMP 97.5
[2019-04-10 06:02] VITALS: BP 126/71; O2SAT 99
== END 2019-04-10 01:47 | disposition home or self-care (01) ==
LOC: ER 00:26
DX: R42 Dizziness and giddiness (principal); M79.10 Myalgia, unspecified site; Z72.0 Tobacco use
CPT/HCPCS: 36415; 80048; 81003; 82550; 85025; 99284

== ENCOUNTER 2019-05-14 21:57 | Emergency (ER) | payer SELFPAY ==
[2019-05-14] MEDS ORDERED: DERMABOND SKIN ADHESIVE TOP ONE (22:27)
--- NOTE | 2019-05-14 22:39 | ER ---
Nurse's Notes [facility] Name: Nadeem Nolasco Age: 28 yrs Sex: Male : 1990 Arrival Date: 05/14/2019 Time: 21:59 Bed 18 Private MD: Diagnosis: Superficial facial laceration Presentation: 05/14 22:02 Presenting complaint: Patient states: Reports he accidentally hit himself with a wrench ea about 5 hours ago, denies LOC. Laceration noted to right eyebrow. Transition of care: patient was not received from another setting of care. Complicating Factors: There are no complicating factors for this patient. Onset of symptoms was May 14, 2019. Risk Assessment: Do you want to hurt yourself or someone else? Patient reports no desire to harm self or others. Initial Sepsis Screen: Does the patient meet any 2 criteria? No. Patient's initial sepsis screen is negative. Does the patient have a suspected source of infection? No. Patient's initial sepsis screen is negative. Care prior to arrival: None. 22:02 Method Of Arrival: Ambulatory ea 22:02 Acuity: LOU 4 ea Triage Assessment: 22:05 Injury Description: Laceration sustained to outer aspect of right eyebrow is 0.5 to 2.5 ea cm long, was sustained 2-4 hours ago. 22:06 General: Appears in no apparent distress. Behavior is appropriate for age. Pain: Denies ea pain. Historical: - Allergies: 22:04 No Known Allergies; ea - Home Meds: 22:04 None [Active]; ea - PMHx: 22:04 Depression; ea - PSHx: 22:04 None; ea - Immunization history:: Adult Immunizations up to date. - Coronavirus screen:: The patient has NOT traveled to [place] in the past 14 days. - Social history:: Smoking status: Patient reports the use of cigarette tobacco products, denies chronic smoking, but will smoke occasionally. - Family history:: not pertinent. - Ebola Screening: : No symptoms or risks identified at this time. - Hospitalizations: : No recent hospitalization is reported. Screenin:04 Abuse screen: Denies threats or abuse. Nutritional screening: No deficits noted. ea Tuberculosis screening: No symptoms or risk factors identified. Fall Risk None identified. Assessment: 22:15 General: Appears in no apparent distress. Behavior is calm, cooperative, appropriate wh for age. Pain: Denies pain. Neuro: Level of Consciousness is awake, alert, obeys commands, Oriented to person, place, time, situation, Appropriate for age. Cardiovascular: Capillary refill < 3 seconds. Respiratory: Airway is patent Respiratory effort is even, unlabored, Respiratory pattern is regular, symmetrical. GI: Abdomen is flat, non-distended. : No signs and/or symptoms were reported regarding the genitourinary system. EENT: No signs and/or symptoms were reported regarding the EENT system. Derm: Skin is intact, is healthy with good turgor, Skin is pink, warm \T\ dry. normal. Musculoskeletal: Circulation, motion, and sensation intact. Injury Description: Laceration sustained to outer aspect of right eyebrow is clean, superficial, 0.5 to 2.5 cm long, is bleeding a small amount. Vital Signs: 22:05 BP 185 / 84; Pulse 91; Resp 18; Temp 98.2; Pulse Ox 100% on R/A; Weight 84.37 kg; ea Height 6 ft. (182.88 cm); 22:05 Body Mass Index 25.23 (84.37 kg, 182.88 cm) ea ED Course: 21:59 Patient arrived in ED. ag3 22:04 Triage completed. ea 22:06 Arm band placed on right wrist. Patient placed in an exam room, on a stretcher, on ea pulse oximetry. 22:07 Eriberto Sosa MD is Attending Physician. rn 22:15 Patient has correct armband on for positive identification. Bed in low position. Call light in reach. Side rails up X 1. Pulse ox on. NIBP on. 22:16 Alisa Mejia is Primary Nurse. 22:30 Assist provider with laceration repair on outer aspect of right eyebrow that was 2.5 wh cm. or less using Dermabond. Set up tray. Performed by Eriberto Sosa MD Patient tolerated well. Patient did not have IV access during this emergency room visit. Administered Medications: No medications were administered Outcome: 22:39 Discharge ordered by . rn 23:01 Discharged to home ambulatory. 23:01 Condition: stable 23:01 Discharge instructions given to patient, Instructed on discharge instructions, follow up and referral plans. wound care, Demonstrated understanding of instructions, follow-up care, wound care. 23:03 Patient left the ED. Signatures: Eriberto Sosa MD MD rn Antunez, Elena, RN RN ea Habalo, Winsy wh Gomez, Alice ag3 Corrections: (The following items were deleted from the chart) 22:06 22:05 Injury Description: Laceration sustained to outer aspect of right eyebrow lilia rodrigues
--- NOTE | 2019-05-14 22:39 | EDPHYS ---
Physician Documentation [facility] Name: Nadeem Nolasco Age: 28 yrs Sex: Male : 1990 Arrival Date: 05/14/2019 Time: 21:59 Bed 18 Private MD: ED Physician Eirberto Sosa HPI: 05/14 22:15 This 28 yrs old Male presents to ER via Ambulatory with complaints of rn Laceration To Head. 22:15 The patient has a laceration. Onset: The symptoms/episode began/occurred just prior to rn arrival. The patient has not experienced similar symptoms in the past. Reports accidentally hit himself in face with wrench, reports small cut but bled a lot, no bleeding problems, no LOC, not on blood thinners. No other injury. . Historical: - Allergies: 22:04 No Known Allergies; ea - Home Meds: 22:04 None [Active]; ea - PMHx: 22:04 Depression; ea - PSHx: 22:04 None; ea - Immunization history:: Adult Immunizations up to date. - Coronavirus screen:: The patient has NOT traveled to [place] in the past 14 days. - Social history:: Smoking status: Patient reports the use of cigarette tobacco products, denies chronic smoking, but will smoke occasionally. - Family history:: not pertinent. - Ebola Screening: : No symptoms or risks identified at this time. - Hospitalizations: : No recent hospitalization is reported. ROS: 22:15 Eyes: Negative for injury, pain, redness, and discharge, Skin: + right supraorbital rn laceration Neuro: Negative for headache, weakness, numbness, tingling, and seizure. Exam: 22:15 Constitutional: This is a well developed, well nourished patient who is awake, alert, rn and in no acute distress. Head/Face: Normocephalic, 2 cm linear and superficial laceration just above right lateral eyebrow, very minimal bleeding, bandaid over wound. No bony tenderness, no fat protrusion. No evidence of ocular injury. Neuro: Awake and alert, GCS 15, oriented to person, place, time, and situation. Cranial nerves II-XII grossly intact. Vital Signs: 22:05 BP 185 / 84; Pulse 91; Resp 18; Temp 98.2; Pulse Ox 100% on R/A; Weight 84.37 kg; ea Height 6 ft. (182.88 cm); 22:05 Body Mass Index 25.23 (84.37 kg, 182.88 cm) ea Laceration: 22:37 Wound Repair of 2cm ( 0.8in ) subcutaneous laceration to outer aspect of right eyebrow. rn Distal neuro/vascular/tendon intact. Wound prep: Moderate cleansing by nurse, Wound explored. Skin closed with 1 thin layer Adhesive skin closure using Dermabond. Patient tolerated well. MDM: 22:07 Patient medically screened. rn 22:37 Differential diagnosis: superficial laceration. Data reviewed: vital signs, nurses rn notes, and as a result, I will discharge patient. Counseling: I had a detailed discussion with the patient and/or guardian regarding: the historical points, exam findings, and any diagnostic results supporting the discharge/admit diagnosis, the need for outpatient follow up, to return to the emergency department if symptoms worsen or persist or if there are any questions or concerns that arise at home. Response to treatment: the patient's symptoms have resolved after treatment, and as a result, I will discharge patient. Special discussion: Based on the patient's history, exam and DX evaluation, there is no indication for emergent intervention or inpatient TX. It is understood by the patient/guardian that if the SXs persist or worsen they need to return immediately for re-evaluation. I discussed with the patient/guardian in detail that at this point there is no indication for admission to the hospital. It is understood, however, that if the symptoms persist or worsen the patient needs to return immediately for re-evaluation. ED course: Wound dermabonded, no bleeding after cleaning, tetanus UTD, will dc home. . 05/14 22:15 Order name: Wound Care; Complete Time: 22:16 rn 05/14 22:15 Order name: Dermabond; Complete Time: 22:43 rn Administered Medications: No medications were administered Disposition: 05/14/19 22:39 Discharged to Home. Impression: Superficial facial laceration. - Condition is Stable. - Discharge Instructions: Tissue Adhesive Wound Care, Facial Laceration. - Medication Reconciliation Form, Thank You Letter, Antibiotic Education, Prescription Opioid Use form. - Follow up: Private Physician; When: As needed; Reason: Recheck today's complaints, Re-evaluation by your physician. - Problem is new. - Symptoms have improved. Signatures: Eriberto Sosa MD MD rn Antunez, Elena, RN RN ea Habalo, Winsy Corrections: (The following items were deleted from the chart) 23:03 22:39 05/14/2019 22:39 Discharged to Home. Impression: Superficial facial laceration. Condition is Stable. Forms are Medication Reconciliation Form, Thank You Letter, Antibiotic Education, Prescription Opioid Use. Follow up: Private Physician; When: As needed; Reason: Recheck today's complaints, Re-evaluation by your physician. Problem is new. Symptoms have improved. rn
[2019-05-14 23:08] VITALS: BP 185/84; TEMP 98.2; O2SAT 100
== END 2019-05-14 23:03 | disposition home or self-care (01) ==
LOC: ER 21:57
PROC: 0JQ10ZZ Repair Face Subcutaneous Tissue and Fascia, Open Approach (ICD-10-PCS; principal; 2019-05-14)
DX: S01.111A Laceration without foreign body of right eyelid and periocular area, initial encounter (principal); F17.210 Nicotine dependence, cigarettes, uncomplicated; W22.8XXA Striking against or struck by other objects, initial encounter; Y93.9 Activity, unspecified; Y92.9 Unspecified place or not applicable
CPT/HCPCS: 99283